=== PATIENT | female | born 1960 | race Caucasian/White ===

== ENCOUNTER 2019-02-09 18:26 | Inpatient (IN) | payer OTHER ==
[2019-02-09] MEDS: IPRATROPIUM (NEB) 0.5 MG/2.5 ML AMP HHN (23:30)
[2019-02-09] MEDS: LEVALBUTEROL (NEB) 1.25 MG/0.5 ML AMP HHN (23:30)
[2019-02-09 23:35] LABS: ADD MAN DIFF? NO
[2019-02-09 23:36] LABS: WHITE BLOOD COUNT 8.2 10^3/ul (4.8-10.8)
[2019-02-09 23:36] LABS: BASOPHIL # 0.1 10^3/ul (0.0-0.1); BASOPHILS % 0.6 % (0.0-2.0); EOSINOPHILS # 0.2 10^3/ul (0.0-0.5); EOSINOPHILS % 2.2 % (0.0-7.0); HEMATOCRIT 35.9 % (37.0-47.0); LYMPHOCYTES # 1.7 10^3/ul (0.8-2.9); LYMPHOCYTES % 20.2 % (15.0-51.0); MEAN CORPUSCULAR HEMOGLOBIN 25.6 pg (29.0-33.0); MEAN CORPUSCULAR HGB CONC 30.6 g/dl (32.0-37.0); MEAN CORPUSCULAR VOLUME 83.7 fl (82.0-101.0); MEAN PLATELET VOLUME 9.9 fl (7.4-10.4); MONOCYTE # 0.6 10^3/ul (0.3-0.9); NEUTROPHIL # 5.7 10^3/ul (1.6-7.5); NEUTROPHILS % 69.8 % (39.0-77.0); PLATELET COUNT 254 10^3/UL (140-415); RED BLOOD COUNT 4.29 10^6/ul (4.20-5.40); RED CELL DISTRIBUTION WIDTH 14.6 % (11.5-14.5)
[2019-02-09 23:44] LABS: ALANINE AMINOTRANSFERASE 30 IU/L (13-69); ALBUMIN 4.1 g/dl (3.3-4.9); ALBUMIN/GLOBULIN RATIO 1.17; ALKALINE PHOSPHATASE 111 IU/L (42-121); ANION GAP 12 (5-13); ASPARTATE AMINO TRANSFERASE 24 IU/L (15-46); BILIRUBIN,INDIRECT 0.2 mg/dl (0-1.1); BILIRUBIN,TOTAL 0.2 mg/dl (0.2-1.3); BLOOD UREA NITROGEN 23 mg/dl (7-20); CALCIUM 9.4 mg/dl (8.4-10.2); CARBON DIOXIDE 31 mmol/L (21-31); CHLORIDE 99 mmol/L (97-110); CREATININE 0.81 mg/dl (0.44-1.00); Estimated GFR > 60 mL/min (>60); GLUCOSE 196 mg/dl (70-220); POTASSIUM 4.5 mmol/L (3.5-5.1); SODIUM 142 mmol/L (135-144); TOTAL PROTEIN 7.6 g/dl (6.1-8.1)
[2019-02-09 23:45] LABS: INR 0.99; PROTIME 13.2 Sec (11.9-14.9)
[2019-02-09 23:46] LABS: PARTIAL THROMBOPLASTIN TIME 32.3 Sec (23.0-35.0)
[2019-02-09 23:53] LABS: TROPONIN-I < 0.012 ng/ml (0.000-0.120)
[2019-02-10] MEDS: PIPER-TAZO 3.375 GM IV (PMX) 100 ML IVPB ×2 (00:40→04:19)
[2019-02-10] MEDS: VANCOMYCIN 1 GM (PMX) 250 ML IVPB (01:47)
[2019-02-10] MEDS ORDERED: MAGNESIUM HYDROXIDE 30ML CUP PO (03:00)
[2019-02-10] MEDS ORDERED: ZOLPIDEM 5 MG TAB PO (03:00)
[2019-02-10] MEDS ORDERED: BISACODYL (EC) 5 MG TAB PO (03:00)
[2019-02-10] MEDS ORDERED: HYDROCODONE/APAP (5/325) TAB PO (03:00)
[2019-02-10] MEDS ORDERED: VANCOMYCIN IV PER PHARMACY XX (03:00)
[2019-02-10] MEDS ORDERED: ONDANSETRON 4 MG TAB PO (03:00)
[2019-02-10] MEDS ORDERED: NACL 0.9% 3 ML SYG IV (03:00)
[2019-02-10] MEDS ORDERED: DOCUSATE SODIUM 100 MG CAP PO (03:00)
[2019-02-10] MEDS ORDERED: GLUCAGON 1 MG INJ IM (03:30)
[2019-02-10] MEDS ORDERED: GLUCOSE GEL 15 GRAM TUBE PO ×2 (03:30)
[2019-02-10] MEDS ORDERED: DEXTROSE 50% 50 ML SYRINGE IV ×2 (03:30)
[2019-02-10] MEDS ORDERED: GLUCOSE GEL 15 GRAM TUBE BUCCAL (03:30)
[2019-02-10 04:00] LABS: LACTIC ACID 0.9 mmol/L (0.5-2.0)
[2019-02-10] MEDS ORDERED: NICOTINE (14 MG/24 HR) PATCH TRANSDERM (04:00)
[2019-02-10] MEDS: NICOTINE (14 MG/24 HR) PATCH TRANSDERM (08:52)
[2019-02-10] MEDS: FAMOTIDINE 20 MG TAB PO (08:53)
[2019-02-10] MEDS: ACETAMINOPHEN 325 MG TAB PO (08:53)
[2019-02-10] MEDS: FUROSEMIDE 40 MG TAB PO (08:53)
[2019-02-10] MEDS: ASPIRIN 81 MG TAB PO (08:53)
[2019-02-10] MEDS ORDERED: INSULIN GLARGINE [LANtus] 3 ML PEN SC (09:00)
[2019-02-10] MEDS ORDERED: FUROSEMIDE (8 MG/ML PO SYG) PO (09:00)
[2019-02-10] MEDS: INSULIN GLARGINE [LANTus] (100 UNITS/ML) SYG SC (09:14)
[2019-02-10] MEDS: ENOXAPARIN 40 MG/0.4 ML SYG SC (09:15)
[2019-02-10] MEDS ORDERED: LIDOCAINE 1% (MPF) 5 ML VIAL SC (10:30)
[2019-02-10] MEDS: VANCOMYCIN HCL 1.5 GM in SOD CHLORIDE 0.9% 250 ML IVPB (11:23)
[2019-02-10] MEDS: LIDOCAINE 1% (MPF) 5 ML VIAL SC (12:00)
[2019-02-10] MEDS ORDERED: ATORVASTATIN 80 MG TAB PO (21:00)
== END 2019-02-10 18:45 | disposition home health service (06) | DRG 603 ==
LOC: E/R 18:26 → TEL 02-10 02:56
PROC: 05HY33Z Insertion of Infusion Device into Upper Vein, Percutaneous Approach (ICD-10-PCS; principal; 2019-02-10)
DX: L03.116 Cellulitis of left lower limb (principal); Z68.41 Body mass index [BMI] 40.0-44.9, adult; I25.10 Atherosclerotic heart disease of native coronary artery without angina pectoris; Z95.1 Presence of aortocoronary bypass graft; E78.5 Hyperlipidemia, unspecified; E11.9 Type 2 diabetes mellitus without complications; E66.9 Obesity, unspecified; Z95.0 Presence of cardiac pacemaker; Z79.82 Long term (current) use of aspirin; Z79.4 Long term (current) use of insulin
CPT/HCPCS: 36415; 36569; 71045; 76937; 76942; 80053; 82962; 83605; 84484; 85025; 85610; 85730; 87040-91; 87070; 87102; 87116; 88104; 88305; 93005; 93971; 94664; 96374; 96375; 96376; 99285-25

== ENCOUNTER 2019-03-04 19:31 | Inpatient (IN) | payer OTHER ==
[2019-03-04 20:52] LABS: ADD MAN DIFF? NO
[2019-03-04 20:55] LABS: BASOPHIL # 0.1 10^3/ul (0.0-0.1); BASOPHILS % 0.9 % (0.0-2.0); EOSINOPHILS # 0.2 10^3/ul (0.0-0.5); EOSINOPHILS % 3.9 % (0.0-7.0); HEMATOCRIT 35.5 % (37.0-47.0); HEMOGLOBIN 10.9 g/dl (12.0-16.0); LYMPHOCYTES # 1.3 10^3/ul (0.8-2.9); LYMPHOCYTES % 24.1 % (15.0-51.0); MEAN CORPUSCULAR HEMOGLOBIN 25.3 pg (29.0-33.0); MEAN CORPUSCULAR HGB CONC 30.7 g/dl (32.0-37.0); MEAN CORPUSCULAR VOLUME 82.6 fl (82.0-101.0); MEAN PLATELET VOLUME 9.2 fl (7.4-10.4); MONOCYTE # 0.6 10^3/ul (0.3-0.9); MONOCYTES % 10.3 % (0.0-11.0); NEUTROPHIL # 3.2 10^3/ul (1.6-7.5); NEUTROPHILS % 60.6 % (39.0-77.0); PLATELET COUNT 243 10^3/UL (140-415); RED CELL DISTRIBUTION WIDTH 15.5 % (11.5-14.5)
[2019-03-04 20:55] LABS: WHITE BLOOD COUNT 5.3 10^3/ul (4.8-10.8)
[2019-03-04 21:15] LABS: ANION GAP 8 (5-13); BLOOD UREA NITROGEN 11 mg/dl (7-20); CALCIUM 9.9 mg/dl (8.4-10.2); CARBON DIOXIDE 32 mmol/L (21-31); CHLORIDE 101 mmol/L (97-110); CREATININE 0.56 mg/dl (0.44-1.00); Estimated GFR > 60 mL/min (>60); GLUCOSE 216 mg/dl (70-220); POTASSIUM 3.9 mmol/L (3.5-5.1); SODIUM 141 mmol/L (135-144)
[2019-03-04 21:27] LABS: B-TYPE NATRIURETIC PEPTIDE 1560 PG/ML (0-125); TROPONIN-I < 0.012 ng/ml (0.000-0.120)
[2019-03-05] MEDS ORDERED: ACETAMINOPHEN 325 MG TAB PO (01:00)
[2019-03-05] MEDS ORDERED: ONDANSETRON 4 MG INJ IV (01:00)
[2019-03-05] MEDS ORDERED: GLUCAGON 1 MG INJ IM (04:30)
[2019-03-05] MEDS ORDERED: GLUCOSE GEL 15 GRAM TUBE BUCCAL (04:30)
[2019-03-05] MEDS ORDERED: GLUCOSE GEL 15 GRAM TUBE PO ×2 (04:30)
[2019-03-05] MEDS ORDERED: DEXTROSE 50% 50 ML SYRINGE IV ×2 (04:30)
[2019-03-05] MEDS: INSULIN ASPART [NOVOLOG] 3 ML PEN SC ×3 (05:00→12:04)
[2019-03-05] MEDS: FUROSEMIDE 40 MG INJ IV (05:47)
[2019-03-05] MEDS ORDERED: INSULIN ASPART [NOVOLOG] 3 ML PEN SC (08:00)
[2019-03-05] MEDS: LISINOPRIL 20 MG TAB PO (08:25)
[2019-03-05] MEDS: POTASSIUM CHLORIDE (SR) 20 MEQ TAB PO ×2 (08:26→11:34)
[2019-03-05] MEDS: FLUCONAZOLE 200 MG TAB PO (08:26)
[2019-03-05] MEDS: BUMETANIDE 6 MG in DEXTROSE 5% 36 ML IV (11:34)
[2019-03-05 11:48] LABS: INR 1.01; PROTIME 13.4 Sec (11.9-14.9)
[2019-03-05 11:49] LABS: PARTIAL THROMBOPLASTIN TIME 28.1 Sec (23.0-35.0)
[2019-03-05] MEDS: LIDOCAINE 1% (MPF) 5 ML VIAL ×2 (15:04→16:54)
[2019-03-05] MEDS ORDERED: ATORVASTATIN 80 MG TAB PO (21:00)
== END 2019-03-05 18:04 | disposition home or self-care (01) | DRG 186 ==
LOC: E/R 19:31 → 6WM 03-05 00:53
PROC: 0W9B30Z Drainage of Left Pleural Cavity with Drainage Device, Percutaneous Approach (ICD-10-PCS; principal; 2019-03-05)
DX: J90 Pleural effusion, not elsewhere classified (principal); J96.01 Acute respiratory failure with hypoxia; Z68.41 Body mass index [BMI] 40.0-44.9, adult; E87.70 Fluid overload, unspecified; I25.10 Atherosclerotic heart disease of native coronary artery without angina pectoris; I10 Essential (primary) hypertension; E11.9 Type 2 diabetes mellitus without complications; E78.5 Hyperlipidemia, unspecified; E66.9 Obesity, unspecified; Z79.4 Long term (current) use of insulin; Z79.82 Long term (current) use of aspirin; Z91.14 Patient's other noncompliance with medication regimen; Z95.1 Presence of aortocoronary bypass graft; Z95.810 Presence of automatic (implantable) cardiac defibrillator
CPT/HCPCS: 36415; 71045; 76942; 80048; 82962; 83880; 84484; 85025; 85610; 85730; 93005; 99285-25

== ENCOUNTER 2019-05-04 10:57 | Emergency (ER) | payer OTHER | END 2019-05-04 12:11 | disposition home or self-care (01) | LOC: E/R 10:57 | DX: I50.9 Heart failure, unspecified (principal); I11.0 Hypertensive heart disease with heart failure; F17.210 Nicotine dependence, cigarettes, uncomplicated; E11.9 Type 2 diabetes mellitus without complications; Z79.4 Long term (current) use of insulin; Z79.82 Long term (current) use of aspirin; Z95.0 Presence of cardiac pacemaker; Z95.1 Presence of aortocoronary bypass graft | CPT/HCPCS: 71045; 99283-25 ==

== ENCOUNTER 2019-07-01 06:08 | Emergency (ER) | payer OTHER ==
[2019-07-01] MEDS: FUROSEMIDE 40 MG INJ IV (07:34)
[2019-07-01 07:42] LABS: ADD MAN DIFF? NO
[2019-07-01 07:50] LABS: BASOPHILS % 0.6 % (0.0-2.0); EOSINOPHILS # 0.1 10^3/ul (0.0-0.5); EOSINOPHILS % 2.1 % (0.0-7.0); HEMOGLOBIN 11.5 g/dl (12.0-16.0); LYMPHOCYTES # 1.1 10^3/ul (0.8-2.9); LYMPHOCYTES % 18.2 % (15.0-51.0); MEAN CORPUSCULAR HEMOGLOBIN 27.3 pg (29.0-33.0); MEAN CORPUSCULAR HGB CONC 31.9 g/dl (32.0-37.0); MEAN CORPUSCULAR VOLUME 85.3 fl (82.0-101.0); MEAN PLATELET VOLUME 9.8 fl (7.4-10.4); MONOCYTE # 0.4 10^3/ul (0.3-0.9); MONOCYTES % 6.8 % (0.0-11.0); NEUTROPHIL # 4.4 10^3/ul (1.6-7.5); PLATELET COUNT 234 10^3/UL (140-415); RED BLOOD COUNT 4.22 10^6/ul (4.20-5.40)
[2019-07-01 07:50] LABS: WHITE BLOOD COUNT 6.2 10^3/ul (4.8-10.8)
[2019-07-01 08:12] LABS: ALANINE AMINOTRANSFERASE 28 IU/L (13-69); ALBUMIN/GLOBULIN RATIO 1.48; ALKALINE PHOSPHATASE 64 IU/L (42-121); ANION GAP 6 (5-13); ASPARTATE AMINO TRANSFERASE 19 IU/L (15-46); BILIRUBIN,INDIRECT 0.7 mg/dl (0-1.1); BILIRUBIN,TOTAL 0.7 mg/dl (0.2-1.3); BLOOD UREA NITROGEN 17 mg/dl (7-20); CALCIUM 9.7 mg/dl (8.4-10.2); CARBON DIOXIDE 30 mmol/L (21-31); CHLORIDE 98 mmol/L (97-110); CREATININE 0.62 mg/dl (0.44-1.00); Estimated GFR > 60 mL/min (>60); GLUCOSE 369 mg/dl (70-220); LIPASE 86 U/L (23-300); POTASSIUM 4.1 mmol/L (3.5-5.1); SODIUM 134 mmol/L (135-144); TOTAL PROTEIN 6.7 g/dl (6.1-8.1)
[2019-07-01 08:23] LABS: B-TYPE NATRIURETIC PEPTIDE 1930 PG/ML (0-125)
[2019-07-01 08:25] LABS: TROPONIN-I < 0.012 ng/ml (0.000-0.120)
== END 2019-07-01 10:12 | disposition home or self-care (01) ==
LOC: E/R 06:08
DX: I50.41 Acute combined systolic (congestive) and diastolic (congestive) heart failure (principal); J90 Pleural effusion, not elsewhere classified; E11.9 Type 2 diabetes mellitus without complications; I25.810 Atherosclerosis of coronary artery bypass graft(s) without angina pectoris; I11.0 Hypertensive heart disease with heart failure; Z79.4 Long term (current) use of insulin; Z79.82 Long term (current) use of aspirin; Z87.891 Personal history of nicotine dependence
CPT/HCPCS: 71045; 80053; 83690; 83880; 84484; 85025; 93005; 96374; 99285-25